=== PATIENT | male | born 1970 | race Caucasian/White ===

== ENCOUNTER 2021-12-23 20:49 | Emergency (ER) | payer OTHER, SELFPAY ==
[2021-12-23 20:58] VITALS: BP 131/85; PULSE 79; RESP 20; TEMP 37.3; O2SAT 97
--- NOTE | 2021-12-23 22:21 | ED.BACK ---
HPI - Back Pain/Injury General Chief Complaint: Unspecified Complaint, Adult Stated Complaint: BACK/HIP/QUAD ISSUES,DIFFICULTY WALKING Time Seen by Provider: 12/23/21 22:03 Source: patient and family Mode of arrival: ambulatory Limitations: no limitations History of Present Illness HPI Narrative: Patient is a 51-year-old male with a long history of back issues. He has had previous surgeries, injections, therapy. No specific injury just worsening pain over the past several days. 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 The pain radiates into his buttocks and left leg. It has been difficult to walk. Tylenol and ibuprofen are not helping. No bowel or bladder dysfunction. Related Data Allergies Allergy/AdvReac Type Severity Reaction Status Date / Time amoxicillin Allergy Severe Anaphylaxis Verified 12/23/21 22:32 gabapentin Allergy Severe Verified 12/23/21 22:32 PFSH PFS Social History Smoking Status: Current every day smoker What tobacco products do you use: cigarettes Second hand tobacco smoke exposure: No How often do you have a drink containing alcohol: monthly or less How many standard drinks containing alcohol do you have on a typical day: 1 or 2 How often do you have six or more drinks on one occasion: Less than monthly AUDIT-C Alcohol total score: 2 Non-prescribed substance use: denies use service: No Exam Const: Vital Signs, click to edit/add: Vital Signs - 24 hr 12/23/21 20:58 Temperature 99.1 F Pulse Rate [Right Pulse Oximeter] 79 Respiratory Rate 20 Blood Pressure [Ri ght Upper Arm] 131/85 Pulse Oximetry 97 Documenting provider has reviewed patient's vital signs: yes Common normals: alert and well nourished General appearance: cooperative Nutritional appearance: obese Orientation/consciousness: Yes awake, Yes oriented to person, Yes oriented to place and Yes oriented to time Neck & C-Spine: Common normals: full ROM, supple and thyroid normal Thyroid: thyroid normal Cervical spine: cervical ROM normal Resp: Common normals: clear to auscultation bilaterally Auscultation: clear to auscultation bilaterally Cardio: Common normals: regular rate, regular rhythm and no murmurs Rate: regular rate Rhythm: regular rhythm GI: Common normals: Normal to inspection, nondistended, normoactive bowel sounds present Back & Pelvis: Common normals: thoracic and lumbar spine normal to inspection Lumbar spine/lower back: pain with ROM, paraspinal muscle tenderness and straight leg raise positive left Neuro: Common normals: no focal motor deficits, no sensory deficits noted and deep tendon reflexes 2+ bilaterally Sensorium/orientation: awake, alert, oriented to person, oriented to place and oriented to time Gait (neuro): antalgic Course Course Hospital Course: Patient was seen and examined. IV was established he is given Dilaudid 0.5 mg and Toradol 30 mg IV. This did improve his pain some but a 2nd dose of Dilaudid 0.5 mg was needed. After that he was able to get dressed in ambulate. He declined a need for prescription for pain medication at home. Vital Signs Vital signs: Initial Vital Signs Temperature 99.1 F 12/23/21 20:58 Temperature Source Temporal Artery Scan 12/23/21 20:58 Pulse Rate 79 12/23/21 20:58 Pulse Rhythm 12/23/21 20:58 Respiratory Rate 20 12/23/21 20:58 Blood Pressure 131/85 12/23/21 20:58 Blood Pressure Mean 100 12/23/21 20:58 Blood Pressure Position Sitting 12/23/21 20:58 Pulse Oximetry 97 12/23/21 20:58 Oxygen Delivery Method 12/23/21 20:58 Vital Signs Temperature 99.1 F 12/23/21 20:58 Pulse Rate 79 12/23/21 20:58 Respiratory Rate 20 12/23/21 20:58 Blood Pressure 131/85 12/23/21 20:58 Pulse Oximetry 97 12/23/21 20:58 Temperature 99.1 F 12/23/21 20:58 Pulse Rate 70 12/24/21 00:00 Respiratory Rate 16 12/24/21 00:00 Blood Pressure 130/72 12/24/21 00:00 Pulse Oximetry 98 12/24/21 00:00 Discharge Plan Discharge Clinical Impression: Acute exacerbation of chronic low back pain Patient Disposition: Home, Self-Care Condition: Improved Additional Instructions: Heat in the a.m., ice after activity. Tylenol 1000 mg every 6 hours, Ibuprofen 800 mg every 8 hours. If pain persists contact your spine surgeon. Activity Level: Activity as Tolerated Follow Up/Referrals: Provider,Not a Local [Primary Care Provider] - Stand Alone Forms: [employer] Info Instructions
[2021-12-23] MEDS: HYDROmorphone 0.5 mg/0.5 ml inj IVP ×2 (22:42→23:37)
[2021-12-23] MEDS: KETOROLAC 30 MG/ML inj IVP (23:37)
[2021-12-24] VITALS: BP 130/72; PULSE 70; RESP 16; O2SAT 98
== END 2021-12-24 00:38 | disposition home or self-care (01) ==
PROVIDERS: Emergency Provider Family Medicine
DX: M54.59 Other low back pain (principal)
CPT/HCPCS: 96374; 96375; 96376; 99283; 99284; J1170; J1885

== ENCOUNTER 2024-04-18 22:11 | Outpatient (REF) | payer OTHER, SELFPAY ==
[2024-04-18 23:13] LABS: Basophils Absolute Auto 0.04 K/uL (0.00-0.30); Basophils Percent Auto 0.5 % (0.0-3.0); Eosinophils Absolute Auto 0.07 K/uL (0.00-0.50); Eosinophils Percent Auto 0.8 % (0.0-7.0); Hemoglobin* 14.5 gm/dL (13.5-17.5); Immature Granulocytes Abs Auto 0.05 K/uL (0.00-0.30); Immature Granulocytes Pct Auto 0.6 %; Lymphocytes Absolute Auto 2.27 K/uL (0.90-2.90); Lymphocytes Percent Auto 26.2 % (20-44); Mean Corpuscular HGB Conc 33 gm/dL (32-36); Mean Corpuscular Hemoglobin 30 pg (26-34); Mean Corpuscular Volume 91 fL (80-100); Monocytes Percent Auto 7.5 % (0.0-11.0); Neutrophils Absolute Auto 5.58 K/uL (1.7-7.0); Neutrophils Percent Auto 64.4 % (42.0-72.0); Platelet Count* 146 K/uL (140-440); RDW Coefficient of Variation % 13.1 % (11.5-15.5); Red Blood Count 4.83 m/uL (4.30-5.90); White Blood Count* 8.66 K/uL (4.50-11.00)
[2024-04-18 23:22] LABS: Slide Review Reflex No
[2024-04-18 23:23] LABS: C Reactive Protein* 1.2 mg/dL (0.5-1.0)
[2024-04-18 23:46] LABS: Erythrocyte SedimentationRate* 17 mm/hr (2-15)
== END 2024-04-18 22:12 | disposition home or self-care (01) ==
LOC: NPINS 22:11
PROVIDERS: PCP Family Medicine; Visit Provider Physician Assistant Surgical
DX: M54.50 Low back pain, unspecified (principal); Z98.1 Arthrodesis status
CPT/HCPCS: 85025; 85651; 86140

== ENCOUNTER 2024-05-17 09:31 | Outpatient (CLI) | payer OTHER, SELFPAY | END 2024-05-17 09:32 | disposition home or self-care (01) | PROVIDERS: PCP Family Medicine; Visit Provider Nurse Practitioner Family | DX: E78.5 Hyperlipidemia, unspecified (principal); I10 Essential (primary) hypertension; Z12.5 Encounter for screening for malignant neoplasm of prostate | CPT/HCPCS: 80053; 80061; G0103 ==

== ENCOUNTER 2024-08-10 09:14 | Outpatient (CLI) | payer OTHER, SELFPAY | END 2024-08-10 09:15 | disposition home or self-care (01) | LOC: FRMREF 09:16 | PROVIDERS: PCP Nurse Practitioner Family; Visit Provider Nurse Practitioner Family | DX: E78.2 Mixed hyperlipidemia (principal) | CPT/HCPCS: 80061; G0103 ==